=== PATIENT | female | born 1945 | race Caucasian/White ===

== ENCOUNTER → 2020-10-12 | Outpatient (CLI) | payer OTHER ==
[~2020-10-12] MED LIST: ASA81BEC PO; CALCIUM + VITA1 EACH PO; CO-ENZYME Q-1010 MG PO; KRILL OIL 1,001 EACH PO; NEXIUM20 MG PO; OXYBUTYNIN 5 MG5 M2 PO; PRAVASTATIN SOD40 MG PO; PRESERVISION A1 EACH PO; PROBIOTIC1 EAC5 PO
== END ==
LOC: LAB 11:15
PROVIDERS: ATTEND Specialist
DX: Z01.812 Encounter for preprocedural laboratory examination (principal); Z20.822 Contact with and (suspected) exposure to COVID-19

== ENCOUNTER → 2020-10-16 | Outpatient (CLI) | payer OTHER ==
[~2020-10-16] VITALS: Ht 152.4 cm; Wt 63.5 kg
--- NOTE | ~2020-10-16 | P ---
[facility] [place] [address] [place] [address] PROCEDURE REPORT Name: GRAYSON JESUS Room #: REG [facility].#: [id number] Admission: 10/16/20 Attend Phys: Joesph Johnson Discharge: Date of : 45 Report #: [id number] THIS REPORT FOR: cc: Eleni Mcknight Cassandra M. DO McElhinney, Christian C. MD ~ DOC #: [id number] oJesph Worley MD DATE OF SERVICE: 10/16/2020 PROCEDURE PERFORMED: Upper endoscopy with biopsies and esophageal dilation. HISTORY OF PRESENT ILLNESS: The patient is a 75-year-old female with a history of gastroesophageal reflux disease, taking Nexium on a daily basis. In general, controls her symptoms. She does report intermittent dysphagia as well as nausea at times. She is on aspirin, which has been held for the last 5 days. Also, complains of left lower quadrant abdominal pain and bloating. Plan is for EGD and colonoscopy today. DESCRIPTION OF PROCEDURE: The risks and benefits of the procedure were explained to the patient, those risks including but not limited to bleeding, perforation and the risk of sedation. She understood these risks and gave informed consent. Sedation was given using propofol per anesthesia. Next, using a standard Olympus upper endoscope, the scope was placed in the patient's mouth and advanced under direct vision through the esophagus, stomach and into the second portion of the duodenum. The larynx was normal in appearance. The esophagus was normal throughout. The GE junction was normal. No evidence of stricture or esophagitis. Upon entering the stomach, a medium to large size hiatal hernia was noted. There was a mild gastritis noted in the gastric body. Biopsies were obtained to rule out H. pylori. No evidence of ulcerations or erosions. The pylorus was normal and patent. The duodenal bulb, first and second portion were all normal. The scope was then brought back up into the patient's stomach and a Savary guidewire was inserted through the scope, leaving the guidewire in place as the scope was then withdrawn. Next, a 48-[place] Savary dilation of the esophagus was then performed without difficulty. The wire and dilator were removed. The scope was reintroduced into the patient's stomach. There was no evidence of mucosal tear after dilation. The scope was then withdrawn and the procedure terminated. The patient tolerated the procedure well. IMPRESSION: 1. Medium to large size hiatal hernia. 2. Gastritis. 3. Otherwise, normal upper endoscopy. RECOMMENDATIONS: [address] [address] PROCEDURE REPORT Name: GRAYSON JESUS Room #: REG [place] [facility]#: [id number] Admission: 10/16/20 Attend Phys: Joesph Johnson Discharge: Date of : 45 Report #: [id number] 1. Await biopsy results. 2. Continue daily PPI therapy. 3. Observe the patient post-dilation. 4. We will proceed with colonoscopy next today. Thank you for allowing me to participate in her care. Joesph Worley MD CCM/VIVIAN By: [id number] Joesph Worley MD /nt
--- NOTE | ~2020-10-16 | P ---
[facility] [place] [address] [place] [address] PROCEDURE REPORT Name: GRAYSON JESUS Room #: REG [facility].#: [id number] Admission: 10/16/20 Attend Phys: Joesph Johnson Discharge: Date of : 45 Report #: [id number] THIS REPORT FOR: cc: Eleni Mcknight Cassandra M. DO McElhinney, Christian C. MD ~ DOC #: [id number] cc: DO Joesph Tucker MD DATE OF SERVICE: 10/16/2020 PROCEDURE PERFORMED: Colonoscopy with biopsies. HISTORY OF PRESENT ILLNESS: The patient is a 75-year-old female with a history of colon polyps 3 years ago, has a family history of colon cancer in her mother. She has been reporting intermittent left lower quadrant abdominal pain and cramping. She does have a history of mild constipation. She denies any blood in her stools. Plan is for colonoscopy. DESCRIPTION OF PROCEDURE: The risks and benefits of the procedure were explained to the patient, those risks including but not limited to bleeding, perforation and the risk of sedation. She understood these risks and gave informed consent. Sedation was given using propofol per anesthesia. Next, a digital rectal exam showed external hemorrhoids, otherwise normal. Next, using a in the scope was placed in the patient's anus and advanced under direct vision to the cecum. The overall prep was excellent. The cecum and ileocecal valve were normal in appearance. In the ascending colon, a 5 mm sessile polyp was noted and removed with cold forceps, otherwise normal. The transverse colon was normal. In the descending colon, two 3-4 mm sessile polyps are noted both removed with cold forceps, otherwise normal. Multiple diverticula were noted in the sigmoid colon. No evidence of inflammation in the rectum, a 3 mm sessile polyp was noted and removed with cold forceps. On retroflexion, small nonbleeding internal hemorrhoids were noted. The scope was then withdrawn and the procedure terminated. The patient tolerated the procedure well. IMPRESSION: 1. Small colonic polyps as described above. 2. Sigmoid diverticulosis without inflammation. 3. Internal and external hemorrhoids. RECOMMENDATIONS: 1. Await biopsy results. 2. Repeat colonoscopy in five years. 3. Would recommend a trial of daily fiber or MiraLax. A script was also given today for Levsin to be used on a p.r.n. basis. [address] [address] PROCEDURE REPORT Name: GRAYSON JESUS Room #: REG [facility]#: [id number] Admission: 10/16/20 Attend Phys: Joesph Johnson Discharge: Date of : 45 Report #: [id number] Thank you for allowing me to participate in her care. Joesph Worley MD [facility] By: [phone] Joseph Worley MD /nt
--- NOTE | 2020-10-19 17:06 | PATH ---
[facility] [place] [address] PATHOLOGY RPT PROCEDURE Name: GRAYSON RIOS Room #: REG [facility].#: [id number] Admission: 10/16/20 Date of : 45 Discharge: Report #: [id number] Path Case #: [id number] [facility] Accession Number: [id number] . 01 Material submitted: . PART A: gastrointestinal site - BIOPSY OF GASTRITIS PART B: colon - POLYP AT ASCENDING COLON. Modifiers: ascending PART C: colon - POLYP AT DESECENDING COLON X2. Modifiers: descending, X2 PART D: rectum - POLYP AT RECTUM . 01 Clinical history: . DTS/EGD AND COLONOSCOPY FAMILY HISTORY OF COLON CANCER/CHANGE IN BOWEL HABITS/GERD . 02 Diagnosis: A. Gastric mucosa, gastritis rule out H. pylori, endoscopic biopsy: - Mild chronic gastritis. - Negative for intestinal metaplasia or atrophy. - Negative for Helicobacter pylori (properly controlled immunohistochemical stain performed). . B. Polyp, at ascending colon, endoscopic biopsy: - Tubular adenoma. - Negative for high grade dysplasia. . C. Polyp x 2, descending colon, endoscopic biopsy: - Tubular adenoma identified in multiple fragments. - Negative for high grade dysplasia. . D. Polyp, rectum, endoscopic biopsy: - Hyperplastic polyp. - Negative for dysplasia. (IUV/db; 10/19/2020) LBQ 10/19/2020 1209 Local . 02 Electronically signed: . Kyung Horne MD, Pathologist NPI- [id number] . 01 Gross description: . A. Received in formalin labeled "GabrielGrayson, biopsy of gastritis rule out H. pylori" are 2 fragments of stoddard-brown soft tissue measuring 0.7 x 0.6 x 0.3 cm and 0.5 x 0.4 x 0.3 cm. The specimen is submitted entirely in A1. . B. Received in formalin labeled "Grayson Rios polyp at ascending colon" are 2 fragments of stoddard-brown soft tissue measuring 0.4 x 0.3 x 0.[address] [address] PATHOLOGY RPT PROCEDURE Name: GRAYSON RIOS Dillan [facility] [id number] Admission: 10/16/20 Date of : 45 Discharge: Report #: [id number] Path Case #: [id number] 0.4 x 0.4 x 0.3 cm. The specimen is submitted entirely in B1. . C. Received in formalin labeled "Brown, Grayson polyp at descending colon x2" are multiple fragments of stoddard-brown soft tissue measuring in aggregate 1.2 x 0.3 x 0.2 cm. The specimen is submitted entirely in C1. . D. Received in formalin labeled "Brown, Grayson polyp at rectum" is a fragment of stoddard-brown soft tissue measuring 0.4 x 0.3 x 0.2 cm. The specimen is submitted entirely in D1. ([facility]; 10/17/2020) . GZA/GZA 10/17/2020 1033 Local . 02 Pathologist provided ICD-10: K29.50, D12.2, D12.4, K62.1 . 02 CPT . 304309, [id number], [id number], [id number], [id number] Specimen Comment: A courtesy copy of this report has been sent to [phone], [phone] Specimen Comment: [id number] Specimen Comment: Report sent to / Performed at: [facility] [address] [place] [address], [place] [id number] MD Rai Ford MD Phone: [phone] Performed at: [address] [id number] MD Kyung Horne MD Phone: [phone]
== END | disposition home or self-care (01) ==
LOC: GI 06:57
PROVIDERS: ATTEND Specialist
DX: R10.32 Left lower quadrant pain (principal); R13.10 Dysphagia, unspecified; D12.2 Benign neoplasm of ascending colon; D12.4 Benign neoplasm of descending colon; K62.1 Rectal polyp; R11.0 Nausea; K29.50 Unspecified chronic gastritis without bleeding; K57.30 Diverticulosis of large intestine without perforation or abscess without bleeding; K64.8 Other hemorrhoids; K64.4 Residual hemorrhoidal skin tags; K21.9 Gastro-esophageal reflux disease without esophagitis; E78.5 Hyperlipidemia, unspecified; Z86.010 Personal history of colon polyps; Z80.0 Family history of malignant neoplasm of digestive organs; Z98.890 Other specified postprocedural states; Z79.899 Other long term (current) drug therapy; Z90.710 Acquired absence of both cervix and uterus
CPT/HCPCS: 62110; 62900